=== PATIENT | female | born 1975 | race Caucasian/White ===

== ENCOUNTER → 2019-11-08 | Outpatient (CLI) | payer BC ==
--- NOTE | 2019-11-08 18:59 | US ---
EXAMINATION TYPE: US pelvic complete DATE OF EXAM: 11/08/2019 COMPARISON: 04/01/2000 CLINICAL HISTORY: D25.9 Leiomyoma of uterus, unspecified, N92.3. TECHNIQUE: Transabdominal (TA). Date of LMP: 10/26/19 EXAM MEASUREMENTS: Uterus: 8.5 x 4. 4.7 cm Endometrial Stripe: 0.5 cm Right Ovary: 2.5 x 1.4 x 1.8 cm Left Ovary: 2.0 x 1.7 x 1.6 cm 1. Uterus: Anteverted wnl 2. Endometrium: wnl 3. Right Ovary: wnl 4. Left Ovary: wnl 5. Bilateral Adnexa: wnl 6. Posterior cul-de-sac: wnl IMPRESSION: 1. No acute process. No definite leiomyoma seen by transabdominal imaging. Previous exam suggests a s mall leiomyoma which was seen only by transvaginal imaging.
== END | disposition home or self-care (01) ==
LOC: RADUSWWP 16:15
PROVIDERS: ATTEND Obstetrics & Gynecology
DX: D25.9 Leiomyoma of uterus, unspecified (principal); N92.3 Ovulation bleeding
CPT/HCPCS: 76856

== ENCOUNTER → 2022-03-19 | Outpatient (CLI) | payer BC ==
[2022-03-19 22:33] LABS: HCT 44.2 % (37.2-46.3); HGB 13.8 g/dL (12.0-15.0); MCH 28.1 pg (27.0-32.0); MCHC 31.2 g/dL (32.0-37.0); Mean Platelet Volume 9.5 fL (9.5-12.2); NRBC Per 100 WBC 0 /100 WBCS (0.0-0.0); Platelet Count 356 X 10*3/uL (140-440); RBC 4.91 X 10*6/uL (4.10-5.20); RDW 12.5 % (11.5-14.5); WBC 6.51 X 10*3/uL (4.50-10.00)
[2022-03-19 22:42] LABS: African American GFR (CKD) 78.4 (60.0-200.0); Anion Gap 9.6 mmol/L (10.00-18.00); BUN/Creat Ratio 11.45 Ratio (12.00-20.00); Blood Urea Nitrogen 11.3 mg/dL (9.0-27.0); Calcium 9.4 mg/dL (8.7-10.3); Carbon Dioxide 25.2 mmol/L (20.0-27.5); Non-African American GFR(CKD) 67.6 (60.0-200.0); Potassium 4.1 mmol/L (3.5-5.5)
== END | disposition home or self-care (01) ==
LOC: LABPAT 16:25
PROVIDERS: ATTEND Obstetrics & Gynecology
DX: Z01.812 Encounter for preprocedural laboratory examination (principal)
CPT/HCPCS: 80048; 85027

== ENCOUNTER → 2022-05-12 | Outpatient (CLI) | payer BC ==
[2022-05-12 17:48] LABS: Anion Gap 10.2 mmol/L (10.00-18.00); BUN/Creat Ratio 13.42 Ratio (12.00-20.00); Basophils # (A) 0.05 X 10*3/uL (0.00-0.10); Basophils % (A) 0.7 %; Blood Urea Nitrogen 14.9 mg/dL (9.0-27.0); Calcium 9.2 mg/dL (8.7-10.3); Carbon Dioxide 26.2 mmol/L (20.0-27.5); Eosinophils # (A) 0.34 X 10*3/uL (0.04-0.35); Eosinophils % (A) 4.5 %; HCT 46.4 % (37.2-46.3); HGB 14.2 g/dL (12.0-15.0); Immature Grans, Automated 0.4 %; Lymphocytes # (A) 2.32 X 10*3/uL (0.90-5.00); Lymphocytes % (A) 30.7 %; MCH 27.5 pg (27.0-32.0); MCHC 30.6 g/dL (32.0-37.0); MCV 89.7 fL (80.0-97.0); Mean Platelet Volume 9.6 fL (9.5-12.2); Monocytes # (A) 0.53 X 10*3/uL (0.20-1.00); NRBC Per 100 WBC 0 /100 WBCS (0.0-0.0); Neutrophils # (A) 4.29 X 10*3/uL (1.80-7.70); Neutrophils % (A) 56.7 %; Non-African American GFR(CKD) 58.7 (60.0-200.0); Platelet Count 339 X 10*3/uL (140-440); Potassium 4.1 mmol/L (3.5-5.5); RBC 5.17 X 10*6/uL (4.10-5.20); RDW 12.6 % (11.5-14.5); WBC 7.56 X 10*3/uL (4.50-10.00)
== END | disposition home or self-care (01) ==
LOC: LABPAT 13:21
PROVIDERS: ATTEND Obstetrics & Gynecology
DX: Z01.812 Encounter for preprocedural laboratory examination (principal)
CPT/HCPCS: 80048; 85025

== ENCOUNTER 2022-05-20 05:48 | Day surgery (SDC) | payer BC ==
[2022-05-16 11:46] VITALS: BMI 25.0
--- NOTE | 2022-05-19 17:27 | P.HPOB ---
History of Present Illness H&P Date: 05/19/22 Chief Complaint: Uterine prolapse, pelvic pain This is 46 y.o. female, 3, para 2, who presents for total vaginal hysterectomy, possible anterior vaginal colporrhaphy, possible total abdominal hysterectomy with bilateral salpingectomy, possible bilateral oophorectomy. She complains of suprapubic pressure and pain along with urinary incontinence. She saw Dr. Galvan who said she has mixed incontinence and said he could do a sling if she wanted. She also complains of urinary retention and always feels like her bladder is full. Ultrasound showed uterus measuring 8.2 x 5.5 x 4.1 cm with endometrium 4.8 mm. Both ovaries appeared normal. There was no mention of a fibroid, but on previous laparoscopy, she did have an approx. 4-5 cm exophytic fibroid on the posterior fundus that was attached to omentum. The adhesion was taken down at the time of that surgery. OB Hx: . History of 2 vaginal deliveries and 1 miscarriage. 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 has had a vasectomy. Social Hx: . Works as a teacher. Review of Systems Constitutional: Reports night sweats, Denies chills, Denies fever Eyes: denies blurred vision, denies pain Ears, nose, mouth and throat: Denies headache, Denies sore throat Cardiovascular: Denies chest pain, Denies shortness of breath Respiratory: Denies cough Gastrointestinal: Denies abdominal pain, Denies diarrhea, Denies nausea, Denies vomiting Genitourinary: Reports incomplete emptying, Reports pelvic pain, Reports prolapse symptoms, Reports stress incontinence, Reports urge incontinence, Reports urinary frequency Menstruation: Reports menses variable, Reports period heavy Musculoskeletal: Denies myalgias Integumentary: Denies pruritus, Denies rash Neurological: Denies numbness, Denies weakness Psychiatric: Reports anxiety, Reports irritability Endocrine: Reports fatigue, Denies weight change Past Medical History Additional Past Medical History / Comment(s): Uterine fibroids, states recent uti with tx by Dr Rosa. History of Any Multi-Drug Resistant Organisms: None Reported Past Surgical History: Breast Surgery (breast biopsies) Additional Past Surgical History / Comment(s): Right shoulder surgery, Laparoscopy, lysis of adhesions. Past Anesthesia/Blood Transfusion Reactions: Motion Sickness, Postoperative Nausea & Vomiting (PONV) Additional Past Anesthesia/Blood Transfusion Reaction / Comment(s): mother=ponv Past Psychological History: Anxiety Smoking Status: Never smoker Past Alcohol Use History: Rare Past Drug Use History: None Reported - Past Family History Mother Family Medical History: Thyroid Disorder Father Family Medical History: Hypertension Medications and Allergies Home Medications Medication Instructions Recorded Confirmed Type Acetaminophen Tab [Tylenol] 325 mg PO Q4H PRN 03/25/22 05/16/22 History Allergies Allergy/AdvReac Type Severity Reaction Status Date / Time No Known Allergies Allergy Verified 05/20/22 06:15 Exam Osteopathic Statement: *. No significant issues noted on an osteopathic structural exam other than those noted in the History and Physical/Consult. HEENT: within normal limits Heart: regular rate and rhythm Lungs: clear to auscultation bilaterally Abdomen: soft, non-tender Pelvic: uterus small, retroverted, non-tender, with 1st degree uterine prolapse, right adnexa mildly tender with questionable ovarian enlargement. Left ovary non-tender, non-enlarged. 1st degree cystocele noted. Extremities: neg. Sylvie's Assessment and Plan (1) Cystocele with uterine prolapse Current Visit: No Status: Acute Code(s): N81.4 - UTEROVAGINAL PROLAPSE, UNSPECIFIED SNOMED Code(s): 9418453887 (2) Pelvic pain in female Current Visit: No Status: Acute Code(s): R10.2 - PELVIC AND PERINEAL PAIN SNOMED Code(s): 584547055 Plan: Proceed with total vaginal hysterectomy with possible anterior colporrhaphy, possible total abdominal hysterectomy with bilateral salpingectomy, possible bilateral oophorectomy. I have discussed the risks, benefits, and alternative therapies for the above- mentioned procedure and for both sedation/anesthesia as well as necessary blood products administration, if indicated, as they pertain to this patient. The patient has indicated her understanding and acceptance of the risks and procedures discussed.
[~2022-05-20 05:48] MED LIST: DEXAMETHASONE SOD PHOSPHATE 4 MG/ML 1 ML VIAL IV ONE; HYDROmorphone 0.5 MG/0.5 ML SYRINGE IVP PRN; LACTATED RINGERS 1,000 ML IV SCH; LIDOCAINE 1% (10MG/ML) FOR IV START INTRADERMA PRN; MIDAZOLAM 2 MG/2 ML VIAL IV PRN; ONDANSETRON 4 MG/2 ML VIAL IVP ONE
[2022-05-20] MEDS: ONDANSETRON 4 MG/2 ML VIAL IVP ONE ×2 (06:42→09:40)
[2022-05-20] MEDS: LACTATED RINGERS 1,000 ML IV SCH ×2 (06:42→11:21)
[2022-05-20] MEDS ORDERED: SCOPOLAMINE 1 MG/72 HR PATCH TRANSDERM ONE (06:43)
[2022-05-20] MEDS ORDERED: HYDROmorphone 0.5 MG/0.5 ML SYRINGE IVP PRN (07:00)
[2022-05-20] MEDS ORDERED: MIDAZOLAM 2 MG/2 ML VIAL IVP ONE (07:09)
[2022-05-20] MEDS ORDERED: NEOSTIGMINE 1 MG/ML 10 ML VIAL ONE (07:26)
[2022-05-20] MEDS ORDERED: MORPHINE SULFATE (PF) 0.3 MG/0.3 ML SYR ONE (07:26)
[2022-05-20] MEDS ORDERED: GLYCOPYRROLATE 0.2 MG/ML 2 ML VIAL ONE (07:26)
[2022-05-20] MEDS ORDERED: ROCURONIUM 10 MG/ML (5 ML VIAL) IV ONE (07:26)
[2022-05-20] MEDS ORDERED: SUCCINYLCHOLINE CHLORIDE 200 MG/10 ML VIAL IV ONE (07:26)
[2022-05-20] MEDS ORDERED: MIDAZOLAM 2 MG/2 ML VIAL ONE (07:26)
[2022-05-20] MEDS ORDERED: PROPOFOL 10 MG/ML 20 ML VIAL IV ONE (07:26)
[2022-05-20] MEDS ORDERED: LIDOCAINE 2% INJ 20 MG/ML (2 ML VIAL) ONE (07:26)
[2022-05-20] MEDS ORDERED: fentaNYL (PF) 50 MCG/ML 2 ML AMP ONE (07:26)
[2022-05-20] MEDS ORDERED: BACITRACIN ZINC 500 UNIT/GM OINT 28.4 GM TUBE TOPICAL ONE ×2 (07:56→08:23)
--- NOTE | 2022-05-20 08:42 | P.OP ---
Date of Procedure: 05/20/22 Preoperative Diagnosis: Uterine prolapse with cystocele Pelvic pain Postoperative Diagnosis: Same Procedure(s) Performed: Total vaginal hysterectomy with anterior vaginal colporrhaphy Anesthesia: GETA, spinal (Duramorph) Surgeon: Edwige Hernandez Printed Forms Proofreader #1: Zack Sams Estimated Blood Loss (ml): 50 Pathology: other (Uterus with cervix, vaginal mucosa) Condition: stable Disposition: floor Indications for Procedure: This is 46 y.o. female, 3, para 2, who presents for total vaginal hysterectomy, possible anterior vaginal colporrhaphy, possible total abdominal hysterectomy with bilateral salpingectomy, possible bilateral oophorectomy. She complains of suprapubic pressure and pain along with urinary incontinence. She saw Dr. Galvan who said she has mixed incontinence and said he could do a sling if she wanted. She also complains of urinary retention and always feels like her bladder is full. Ultrasound showed uterus measuring 8.2 x 5.5 x 4.1 cm with endometrium 4.8 mm. Both ovaries appeared normal. There was no mention of a fibroid, but on previous laparoscopy, she did have an approx. 4-5 cm exophytic fibroid on the posterior fundus that was attached to omentum. The adhesion was taken down at the time of that surgery. Operative Findings: Uterus is retroverted, with a exophytic calcified fibroid noted on the right posterior side. The left ovary is visualized and has a small hemorrhagic cyst. Right ovary is not visualized completely. Both tubes appeared normal. Grade 2 cystocele is noted. Description of Procedure: The patient is taken the operating room where she is placed in the dorsal lithotomy position. She is prepped and draped in the normal sterile fashion. Next a weighted speculum was placed in the patient's vagina and a right angle retractor was used to visualize the cervix. The anterior lip of the cervix is grasped with a single-tooth tenaculum. Next the cervix was circumferentially injected with one amp of epinephrine to 150 mL of normal saline. Next the cervix was circumscribed with a scalpel. The vaginal mucosa was pushed away from the cervix with a sponge. Next the uterosacral ligaments are clamped on either side with a Radha clamp, cut with Munguia scissors, and then sutured with 0 Vicryl suture in a Radha transfixion stitch and then held on either side with a straight hemostat. Next the posterior peritoneal reflection was identified and entered sharply with Munguia scissors. The edges of the vaginal mucosa was then tagged with 0 Vicryl suture and held with a curved hemostat for identification. Next a longbilled weighted speculum was placed through the posterior peritoneal reflection. Next the cardinal ligaments were clamped on either side with Radha clamps, cut with Munguia scissors, and then sutured with 0 Vicryl suture in Radha transfixion stitches and cut. Next the vesicouterine peritoneum reflection is identified and entered sharply with Metzenbaum scissors. A right angle bladder retractor is then used to retract the bladder. The uterine arteries are clamped on either side with Radha clamps, cut with Munguia scissors, and then sutured with 0 Vicryl suture in Radha transfixion stitches. The round ligament is also clamped on either side with a Radha clamp, cut with Munguia scissors, and sutured with 0 Vicryl suture in Radha transfixion stitches. Next the uterine ovarian ligament and tube were clamped on either side with a Radha clamp, cut with Munguia scissors, and then sutured with 0 Vicryl suture in a [id number] stitch, flashed, and then free tied with another suture of 0 Vicryl suture. These pedicles were held with a straight Josselin for identification. The uterus is removed from the field. There is a small omental adhesions to the exophytic fibroid on the uterus. This is taken down cautery. Excellent hemostasis is noted. The left ovary is visualized small hemorrhagic cyst is noted. The right ovary is not completely visualized. Both tubes are visualized and appear normal. Next the peritoneum is closed with 0 Vicryl suture in a pursestring fashion incorporating all the held ligaments. Next the uterine ovarian ligaments are tied together in the middle and cut. Next attention was turned to the cystocele repair. The edges of the vaginal mucosa are held with 2 Allis clamps. Next injection of the same epinephrine solution is injected underneath the mucosa upwards towards the urethra. Metzenbaum scissors were used to dissect underneath the vaginal mucosa and cut along the way up to just below the urethra. Sharp and blunt dissection are used to dissect the bladder away from the vaginal mucosa. Once the bladder is freed, the cystocele is reduced with 0 Vicryl suture in [id number] stitches on either side of the cystocele. Next the edges of the vaginal mucosa are trimmed with Metzenbaum scissors. Next the vaginal mucosa is sutured with 0 Vicryl suture in a running locked fashion incorporating the vaginal cuff. The uterosacral ligaments were also tied toge ther in the midline prior to completely closing the vaginal cuff. Excellent hemostasis is noted. The Alexis catheter is inserted and clear urine is noted. Next the vagina is packed with one-inch iodoform gauze with bacitracin ointment. All sponge and needle counts are correct and the patient is then taken to recovery room in stable condition.
[2022-05-20] MEDS ORDERED: diphenhydrAMINE 50 MG/ML 1 ML VIAL IVP ONE (09:48)
[2022-05-20] MEDS ORDERED: ONDANSETRON 4 MG/2 ML VIAL IVP PRN (09:56)
[2022-05-20] MEDS ORDERED: diphenhydrAMINE 50 MG/ML 1 ML VIAL IVP PRN (09:56)
[2022-05-20] MEDS ORDERED: SIMETHICONE 80 MG CHEWABLE PO PRN (09:56)
[2022-05-20] MEDS ORDERED: ZOLPIDEM 5 MG TAB PO PRN (09:56)
[2022-05-20] MEDS ORDERED: KETOROLAC 15 MG/ML 1 ML VIAL IVP PRN (09:56)
[2022-05-20] MEDS ORDERED: METOCLOPRAMIDE 5 MG/ML 2 ML VIAL IVP PRN (09:56)
[2022-05-20] MEDS ORDERED: LACTATED RINGERS 1,000 ML IV ONE (10:20)
[2022-05-20] MEDS: SENNOSIDES-DOCUSATE SODIUM 1 EACH TAB PO SCH ×2 (11:47→22:53)
--- NOTE | 2022-05-20 12:56 | P.ANPRN ---
Procedure Note - Anesthesia - Epidural/Spinal Spinal Time Out Performed: Yes Date of Procedure: 05/20/22 Procedure Start Time: 06:59 Procedure Stop Time: 07:03 Location of Patient: PreOp Indication: Acute Post-Operative Pain Sedation Type: Sedate with meaningful contact maintained Preparation: Sterile Prep Position: Sitting Needle Guage: 25 Blood Aspirated: No Pain Paresthesia on Injection Noted: No Events: Uneventful and Well Tolerated (duramorph 300 mics plus fentanyl 25 mics)
[2022-05-21 06:37] LABS: Basophils % (A) 0 %; Eosinophils # (A) 0.1 k/uL (0-0.7); Eosinophils % (A) 1 %; HCT 42.4 % (34.0-46.0); HGB 13.1 gm/dL (11.4-16.0); Lymphocytes # (A) 1.5 k/uL (1.0-4.8); Lymphocytes % (A) 12 %; MCH 28.1 pg (25.0-35.0); MCV 90.7 fL (80.0-100.0); Mean Platelet Volume 6.9; Monocytes # (A) 0.7 k/uL (0-1.0); Monocytes % (A) 6 %; Neutrophils # (A) 9.7 k/uL (1.3-7.7); Neutrophils % (A) 80 %; Platelet Count 298 k/uL (150-450); RBC 4.67 m/uL (3.80-5.40); WBC 12.2 k/uL (3.8-10.6)
[2022-05-21 07:30] VITALS: BP 110/73; PULSE 87; RESP 16; TEMP 99.3
[2022-05-21] MEDS ORDERED: ACETAMINOPHEN TAB 325 MG TAB PO PRN (08:44)
--- NOTE | 2022-05-21 08:47 | P.PN ---
Progress Note - Text Progress Note Date: 05/21/22 Ms. Forbes is a 46-year-old female had postop day 1 -Total vaginal hysterectomy with anterior vaginal colporrhaphy under spinal analgesia with repeateds plus fentanyl 25 mics for postop pain. Today patient is comfortable sitting in her bed. Today patient rated her pain level 3 out of 10 in severity. Denied any fever, drowsiness, confusion. Denied any weakness, tingling sensation in her lower extremities. Denied any bowel or bladder problems. Moving all extremities without any difficulty. Able to walk without any difficulties. Patient complained mild itching. Which is resolving now. Vitals: Hemodynamically stable Continue oral pain medication as per primary team.
--- NOTE | 2022-05-21 09:02 | P.DS ---
Providers Date of admission: 05/20/2022 Expected date of discharge: 05/21/22 Attending physician: Edwige Hernandez Primary care physician: Dedra Melendez - Discharge Diagnosis(es) (1) Cystocele with uterine prolapse Current Visit: No Status: Acute (2) Pelvic pain in female Current Visit: No Status: Acute Hospital Course: This is a 46-year-old female who underwent a total vaginal hysterectomy with anterior vaginal colporrhaphy on 05/20/2022. Postoperatively she has done well. Bleeding has been minimal. She has been tolerating regular diet. This morning she does complain of some nausea. She has not urinated yet on as catheter was just removed. She is passing flatus but no bowel movement yet. Her pain is fairly well controlled. Vital signs are stable. Abdomen is soft with positive bowel sounds 4. Joan-pad shows scant serosanguineous discharge. Extremities show negative Homans. Impression is status post total vaginal hysterectomy with anterior vaginal colporrhaphy postoperative day #1. Plan is to discharge home later today as long as she is urinating her pain is well-controlled. She is advised follow-up in the office in 2 weeks for postoperative check. She is advised to call the office if she has any further questions or concerns prior to her appointment time. Procedures: Total vaginal hysterectomy with anterior vaginal colporrhaphy on 05/20/2022 Patient Condition at Discharge: Stable Plan - Discharge Summary Discharge Rx Participant: Yes New Discharge Prescriptions: New RX: Ibuprofen [Motrin] 600 mg PO Q6HR PRN #60 tab PRN Reason: Pain No Action Acetaminophen Tab [Tylenol] 325 mg PO Q4H PRN PRN Reason: Pain Discharge Medication List Acetaminophen Tab [Tylenol] 325 mg PO Q4H PRN 03/25/22 [History] RX: Ibuprofen [Motrin] 600 mg PO Q6HR PRN #60 tab 05/21/22 [Rx] Follow up Appointment(s)/Referral(s): Edwige Hernandez DO [Doctor of Osteopathic Medicine] - 2 Weeks Activity/Diet/Wound Care/Special Instructions: Activity as tolerated. Diet as tolerated. May shower, but no tub baths for 1 week. No intercourse for 6 weeks. No heavy lifting. Discharge Disposition: HOME SELF-CARE
[2022-05-21] MEDS: SENNOSIDES-DOCUSATE SODIUM 1 EACH TAB PO SCH (11:01)
== END 2022-05-21 11:30 | disposition home or self-care (01) ==
LOC: OR 05:48 → 4FBP 08:35 → OR 05-21 11:30
PROVIDERS: ATTEND Obstetrics & Gynecology
DX: N81.4 Uterovaginal prolapse, unspecified (principal); D25.9 Leiomyoma of uterus, unspecified; N83.202 Unspecified ovarian cyst, left side; N84.1 Polyp of cervix uteri; N76.1 Subacute and chronic vaginitis; K66.0 Peritoneal adhesions (postprocedural) (postinfection); R32 Unspecified urinary incontinence; G89.18 Other acute postprocedural pain; Z82.49 Family history of ischemic heart disease and other diseases of the circulatory system; Z83.49 Family history of other endocrine, nutritional and metabolic diseases
CPT/HCPCS: 81025; 86900; 86901; 85025; 86850; 88307; 57240; 62322; 58260; J2250; J0171; J1200 ×2; J1100; J2765; J0690; J2405

== ENCOUNTER → 2022-09-25 | Outpatient (CLI) | payer BC ==
[2022-09-25 10:38] LABS: Basophils # (A) 0.05 X 10*3/uL (0.00-0.10); Basophils % (A) 0.7 %; Eosinophils # (A) 0.36 X 10*3/uL (0.04-0.35); Eosinophils % (A) 5.3 %; HCT 45.6 % (37.2-46.3); HGB 14.8 g/dL (12.0-15.0); Immature Grans, Automated 0.4 %; Lymphocytes # (A) 2.04 X 10*3/uL (0.90-5.00); Lymphocytes % (A) 30.1 %; MCH 28.5 pg (27.0-32.0); MCHC 32.5 g/dL (32.0-37.0); MCV 87.9 fL (80.0-97.0); Mean Platelet Volume 9.7 fL (9.5-12.2); Monocytes % (A) 8.8 %; NRBC Per 100 WBC 0 /100 WBCS (0.0-0.0); Neutrophils % (A) 54.7 %; Platelet Count 355 X 10*3/uL (140-440); RBC 5.19 X 10*6/uL (4.10-5.20); RDW 12.8 % (11.5-14.5); WBC 6.78 X 10*3/uL (4.50-10.00)
[2022-09-25 10:55] LABS: ALT 26 U/L (8-44); AST 21 U/L (13-35); African American GFR (CKD) 76.6 (60.0-200.0); Albumin 4.3 g/dL (3.8-4.9); Albumin/Globulin Ratio 1.86 (1.60-3.17); Alkaline Phosphatase 66 U/L (41-126); Blood Urea Nitrogen 12.8 mg/dL (9.0-27.0); Calcium 9.4 mg/dL (8.7-10.3); Carbon Dioxide 26.9 mmol/L (20.0-27.5); Chloride 103 mmol/L (96-109); Globulin 2.3 g/dL (1.6-3.3); Glucose 100 mg/dL (70-110); LDL Cholesterol,Calculated 146.6 mg/dL (0.0-131.0); Non-African American GFR(CKD) 66.1 (60.0-200.0); Potassium 4.5 mmol/L (3.5-5.5); Sodium 139 mmol/L (135-145); Total Protein 6.6 g/dL (6.2-8.2)
== END | disposition home or self-care (01) ==
LOC: LABWHC1 07:08
PROVIDERS: ATTEND Family Medicine
DX: Z00.00 Encounter for general adult medical examination without abnormal findings (principal)
CPT/HCPCS: 36415; 80053; 80061; 82306; 84443; 85025